=== PATIENT | female | born 1975 | race Caucasian/White ===

== ENCOUNTER → 2019-01-16 | Outpatient (CLI) | payer OTHER | LOC: MHCPAIN 09:59 | DX: G89.29 Other chronic pain (principal); M79.2 Neuralgia and neuritis, unspecified | CPT/HCPCS: G0463 ==

== ENCOUNTER → 2019-08-20 | Outpatient (CLI) | payer OTHER | LOC: MHCPAIN 15:28 | DX: M79.2 Neuralgia and neuritis, unspecified (principal); M25.512 Pain in left shoulder | CPT/HCPCS: G0463 ==